=== PATIENT | female | born 1970 | race African-American/Black ===

== ENCOUNTER 2022-11-21 23:21 | Emergency (ER) | payer BC ==
[~2022-11-21] VITALS: Ht 165.1 cm; Wt 104.3 kg
--- NOTE | 2022-11-22 00:50 | NUR ---
PT AMB TO [facility] WITH TOOTH ACHE.
[2022-11-22] MEDS ORDERED: CLINDAMYCIN HCL 150 MG CAPSULE PO ONE (01:15)
[2022-11-22] MEDS ORDERED: CLIN300C3 PO (01:18)
[2022-11-22] MEDS ORDERED: HYDR-3980 PO (01:18)
[2022-11-22] MEDS ORDERED: CLINDAMYCIN HCL 300 MG CAPSULE ONE (01:23)
--- NOTE | 2022-11-22 01:25 | NUR ---
PT A,A AND O X 4. Patient discharged to home in stable condition. Written and verbal after care instructions given. Patient verbalizes understanding of instructions. Stressed follow up or return to ER for worsening s/s. PT AMB OUT WITH STEADY GAIT.
[2022-11-22 02:00] VITALS: BP 157/97
== END 2022-11-22 01:25 | disposition home or self-care (01) ==
LOC: ER 23:34
DX: K04.7 Periapical abscess without sinus (principal); Z79.899 Other long term (current) drug therapy; Z79.2 Long term (current) use of antibiotics
CPT/HCPCS: A4663